=== PATIENT | male | born 1955 | race Caucasian/White ===

== ENCOUNTER 2024-01-21 14:17 | Outpatient (CLI) | payer MEDICARE | END 2024-01-21 14:18 | disposition home or self-care (01) | LOC: CSHCT 14:17 | DX: K42.9 Umbilical hernia without obstruction or gangrene (principal); K57.92 Diverticulitis of intestine, part unspecified, without perforation or abscess without bleeding | CPT/HCPCS: 74177; 82565 ==

== ENCOUNTER 2024-03-17 17:56 | Emergency (ER) | payer MEDICARE | END 2024-03-17 19:37 | disposition home or self-care (01) | LOC: CSHERS 17:56 | DX: I10 Essential (primary) hypertension (principal) | CPT/HCPCS: 93005 ==